=== PATIENT | female | born 1975 | race Caucasian/White ===

== ENCOUNTER → 2019-03-05 08:13 | Outpatient (CLI) | payer MEDICAID ==
--- NOTE | 2019-03-06 10:00 | ST ---
PATIENT:MAGDALENO NICK MEDICAL RECORD: [id number] SEX: F LOCATION:[facility] ORDER #: ADMISSION DATE: 03/05/19 AGE OF PATIENT: 43 REFERRING PHYSICIAN: INTERPRETING PHYSICIAN: MAHENDRA NINO MD DATE OF SERVICE: 03/05/2019 Nuclear Stress Test INDICATION: Angina, preoperative evaluation surgery, hypertension, and family history of coronary artery disease. She was exercised on standard Fili protocol for 7 minutes 45 seconds completing greater than 85% maximum target heart rate response with 33 mCi of sestamibi injected at peak stress, 11 mCi used previously for rest images. FINDINGS: Gated SPECT reveals preserved ejection fraction at 64% with good wall motion and thickening and brightening throughout all segments. SPECT imaging Cardiolite was used as myocardial fusion agent. There is homogeneous uptake throughout all segments at rest and stress with no evidence of inducible ischemia or previous infarction. OVERALL IMPRESSION: 1. This is a normal nuclear stress test with no evidence of inducible ischemia or previous infarction. 2. Gated SPECT reveals a preserved ejection fraction at 64%. In this patient with ongoing symptomatology, the current scan does not suggest the presence of hemodynamically significant coronary artery disease. Evaluate noncardiac etiology of chest pain. TRANSINT:[id number] Voice Confirmation ID: [id number] DOCUMENT ID: [id number] cc: Haley Rodriguez [employer] [phone] MAHENDRA NINO MD at 1000 CC: HALEY RODRIGUEZ [phone] DICTATION DATE: 03/05/19 1604 CAR MECHANIC: 03/06/19 0745 DEP CLI 03/05/19 [place] [id number] [place] [id number]
== END | disposition home or self-care (01) ==
LOC: D.HCCARDIO 08:13
PROVIDERS: ATTEND Internal Medicine Interventional Cardiology
DX: I20.9 Angina pectoris, unspecified (principal)